=== PATIENT | female | born 1945 | race Caucasian/White ===

== ENCOUNTER → 2024-11-30 13:53 | Outpatient (REF) | payer MEDICARE, OTHER, SELFPAY | LOC: HWRCS 13:53 | PROVIDERS: ATTENDING PHYSICIAN Internal Medicine; FAMILY PHYSICIAN Family Medicine | DX: R07.89 Other chest pain (principal); H34.9 Unspecified retinal vascular occlusion; I73.00 Raynaud's syndrome without gangrene | CPT/HCPCS: 93306 ==